=== PATIENT | male | born 1960 | race Caucasian/White ===

== ENCOUNTER → 2017-05-20 | Outpatient (CLI) | payer BC ==
[~2017-05-20] MED LIST: ADVIN10/60 INH; BUSP-8 PO; CAL PO; FISHOIL PO; MAG PO; MULTTAB58 PO; PARO30TA PO; VITD PO; VNTHFA/IN INH
--- NOTE | 2017-05-20 15:51 | DIAGNOSTIC IMAGING REPORT ---
RIGHT FOOT MIN 3 VIEWS ROUTINE CLINICAL HISTORY: 56 years-old Male presenting with right foot pain. TECHNIQUE: Frontal, oblique, and lateral views of the right foot were obtained. COMPARISON: None. FINDINGS: No acute fracture or malalignment. Regional soft tissues normal. No significant degenerative change. Prominent bone spur eccentric calcaneus. IMPRESSION: 1. No acute osseous injury of the right foot. 2. Enthesophyte at the inferior calcaneus. Correlate for symptoms of plantar fasciitis. Electronically signed by: Amando Hewitt M.D. 05/20/2017 3:49 PM Dictated Date/Time: 05/20/2017 3:48 PM
== END | disposition home or self-care (01) ==
LOC: C.RAD1850 15:13
PROVIDERS: ATTEND Family Medicine
DX: Z00.00 Encounter for general adult medical examination without abnormal findings (principal); M79.671 Pain in right foot